=== PATIENT | male | born 1985 | race Caucasian/White ===

== ENCOUNTER 2017-03-25 09:23 | Emergency (ER) | payer MEDICAID ==
[~2017-03-25] VITALS: Ht 172.7 cm; Wt 60.0 kg
[~2017-03-25 09:23] MED LIST: LEVE250 PO; LEVE500 PO
[2017-03-25 09:26] VITALS: BP 129/88; PULSE 77; RESP 16; TEMP 98.1; O2SAT 100
[2017-03-25] MEDS ORDERED: LEVE250 PO (09:36)
--- NOTE | 2017-03-25 09:54 | PD ---
HPI Chief Complaint: Injury Time Seen by Provider: 09:53 Travel History International Travel<30 days: No Contact w/Intl Traveler<30days: No Traveled to known affect area: No History of Present Illness HPI 32 YO M presents to the ED for evaluation of 3 day history LEFT shoulder pain. Patient can identify no acute injury but states "I think I slept wrong on it." States that the pain radiates down the arm to the elbow. He also endorses inability to raise the arm to shoulder height. Denies numbness, tingling, weakness of the extremity. Endorses previous injury to the shoulder in childhood. No treatment attempted at home. PFSH Past Medical History Bipolar Disorder: Yes Anxiety: Yes Depression: Yes Seizures: Yes Tetanus Vaccination: < 5 Years Influenza Vaccination: No Past Surgical History Surgical History: No Previous Surgery Social History Alcohol Use: No Tobacco Use: Yes (1 ppd) Substance Use: Yes (Marijuana) Allergies-Medications (Allergen,Severity, Reaction): Coded Allergies: No Known Allergies (Unverified , 03/25/17) Reported Meds & Prescriptions Reported Meds & Active Scripts Active Ibuprofen 800 Mg Tab 800 Mg PO Q8H Reported Keppra (Levetiracetam) 250 Mg Tab 250 Mg PO BID Review of Systems Except as stated in HPI: all other systems reviewed are Neg Physical Exam Narrative GENERAL: Well-nourished, well-developed thin, anxious white male in no acute distress. SKIN: Focused skin assessment warm/dry. HEAD: Normocephalic. EYES: No scleral icterus. No injection or drainage. NECK: Supple, trachea midline. No JVD or lymphadenopathy. CARDIOVASCULAR: Regular rate and rhythm without murmurs, gallops, or rubs. RESPIRATORY: Breath sounds equal bilaterally. No accessory muscle use. GASTROINTESTINAL: Abdomen soft, non-tender, nondistended. MUSCULOSKELETAL: No cyanosis, or edema. FOCUSED LEFT UPPER EXTREMITY EXAM: 2+ radial pulse. Strong clerical order filler strength. Tender to palpation of the acromioclavicular joint. Passive abduction of the shoulder elicits pain and piloerection. External rotation elicits pain and piloerection. Drop test positive. Neurovascularly intact. BACK: Nontender without obvious deformity. No CVA tenderness. Data Data Last Documented VS Vital Signs Date Time Temp Pulse Resp B/P Pulse Ox O2 Delivery O2 Flow Rate FiO2 03/25/17 09:36 Room Air 03/25/17 09:26 98.1 77 16 129/88 100 Orders Shoulder, Complete (>2vws) (03/25/17 09:51) Ice/Cold Pack (03/25/17 09:51) Ketorolac Inj (Toradol Inj) (03/25/17 10:00) Acetamin-Hydrocod 325-5 Mg ([place] 5-325 (03/25/17 10:00) MDM Medical Decision Making Medical Screen Exam Complete: Yes Emergency Medical Condition: Yes Differential Diagnosis Contusion versus osteoarthritis versus fracture versus rotator cuff tendinitis versus rotator cuff tear versus other Narrative Course 32 YO M presents to the ED for evaluation of 3 day history LEFT shoulder pain. Patient can identify no acute injury but states "I think I slept wrong on it." States that the pain radiates down the arm to the elbow. He also endorses inability to raise the arm to shoulder height. Denies numbness, tingling, weakness of the extremity. Endorses previous injury to the shoulder in childhood. Vitals reviewed. Physical exam reveals an anxious white male in no acute distress. There is tenderness to palpation of the acromioclavicular joint and passive abduction and external rotation elicits pain in piloerection. Drop test is positive. Patient was administered IM Toradol, by mouth Lortab and ice pack. X-rays reveal chronic changes suspicious of rotator cuff tendinitis. I discussed the results of the x-ray with the patient. I stressed the importance of moving the shoulder through normal range of motion as tolerated. He was prescribed a short course of anti-inflammatories and instructed to follow-up with ortho pedis. He indicated understanding of these instructions and is agreeable to the care plan. He is stable and discharged home. Diagnosis Primary Impression: Tendinitis of left rotator cuff Referrals: Orthopedist Patient Instructions: General Instructions, Rotator Cuff Tendinitis (ED) Additional Instructions: Rest, hydrate. Return to normal, gentle activity as tolerated. Move the shoulder through normal range of motion as tolerated. Take anti-inflammatories 3 times a day as prescribed. Warm compresses applied to the area may also help to reduce her pain. Follow-up with orthopedist. Return to the ED for any urgent or emergent medical condition. Med/Other Pt SpecificInfo: Prescription(s) given Scripts Ibuprofen 800 Mg Qsu548 Mg PO Q8H #21 TAB Ref 0 Prov:Hernán Sen MD 03/25/17 Disposition: 01 DISCHARGE HOME Condition: Stable Nicolle Moreno Mar 25, 2017 09:54
[2017-03-25] MEDS ORDERED: ACETAMINOPHEN/HYDROcodone 325 MG/5 MG TAB PO ONE (10:00)
[2017-03-25] MEDS ORDERED: KETOROLAC TROMETHAMINE 60 MG/2 ML (IM) VIAL IM ONE (10:00)
--- NOTE | 2017-03-25 10:28 | RADRPT ---
EXAM DATE/TIME: 03/25/2017 10:12 [facility] COMPARISON: No previous studies available for comparison. INDICATIONS : Awoke with severe pain in left shoulder 3 days ago, unable to move arm, unable to abduct or raise arm , denies injury or trauma MEDICAL HISTORY : left shoulder broken at age 14 SURGICAL HISTORY : None. ENCOUNTER: Initial ACUITY: 3 days PAIN SCORE: 10/10 LOCATION: Left shoulder FINDINGS: No definite fractures, or dislocations are identified. No definite lytic or sclerotic lesion is seen . There are calcifications involving the rotator cuff on the left side probably due to chronic tendin itis and there are additional calcifications involving the left shoulder above the humeral head could potentially be in the cartilage itself possibly due to old trauma. Acute fracture is not seen. CONCLUSION: Chronic changes and no evidence for acute fracture. Socorro Jesus MD on March 25, 2017 at 10:25 Board Certified Radiologist. This report was verified electronically.
[2017-03-25] MEDS ORDERED: IBUP800T23 PO (10:43)
== END 2017-03-25 11:01 | disposition home or self-care (01) ==
LOC: NEPK 09:23
DX: M75.102 Unspecified rotator cuff tear or rupture of left shoulder, not specified as traumatic (principal); M79.602 Pain in left arm; F17.200 Nicotine dependence, unspecified, uncomplicated; Z86.59 Personal history of other mental and behavioral disorders; Z86.69 Personal history of other diseases of the nervous system and sense organs
CPT/HCPCS: 73030; 96372; 99284; J1885

== ENCOUNTER 2017-07-20 12:19 | Emergency (ER) | payer MEDICAID ==
[~2017-07-20] VITALS: Ht 177.8 cm; Wt 65.0 kg
[~2017-07-20 12:19] MED LIST changes: +IBUP1TAB7 PO; -LEVE500 PO
[2017-07-20 12:25] VITALS: BP 117/81; PULSE 81; RESP 16; TEMP 97.7; O2SAT 99
[2017-07-20] MEDS ORDERED: SODIUM CHLOR 0.9% 1000 ML INJ 1,000 ML IV ONE (13:00)
[2017-07-20] MEDS ORDERED: SODIUM CHLORIDE 0.9% FLUSH 10 ML FLUSH IVF PRN (13:00)
[2017-07-20] MEDS ORDERED: ONDANSETRON HCL 4 MG/2 ML VIAL IV PUSH ONE (13:00)
[2017-07-20 13:25] LABS: AUTOMATED NEUTROPHIL # 4.8 TH/MM3 (1.8-7.7); BASOPHIL % 0.5 % (0.0-2.0); EOSINOPHIL # 0.2 TH/MM3 (0-0.4); EOSINOPHIL % 3.3 % (0.0-4.0); HEMATOCRIT 48.1 % (39.0-51.0); HEMO FLAGS DIFF FINAL; LYMPH % 18.6 % (9.0-44.0); LYMPHOCYTE # 1.4 TH/MM3 (1.0-4.8); MEAN CELL VOLUME 98.1 FL (80.0-100.0); MEAN CORPUSCULAR HGB CONC 34.6 % (32.0-36.0); MONO % 11.2 % (0.0-8.0); NEUT % 66.4 % (16.0-70.0); PLATELET COUNT 141 TH/MM3 (150-450); RED BLOOD COUNT 4.91 MIL/MM3 (4.50-5.90); RED CELL DISTRIBUTION WIDTH 11.8 % (11.6-17.2); WHITE BLOOD COUNT 7.3 TH/MM3 (4.0-11.0)
[2017-07-20 13:39] LABS: ANION GAP 7 MEQ/L (5-15); AST (GOT) 39 U/L (15-37); BICARBONATE 24.4 MEQ/L (21.0-32.0); BLOOD UREA NITROGEN 7 MG/DL (7-18); CHLORIDE 105 MEQ/L (98-107); GLOMERULAR FILTRATION RATE 97 ML/MIN (>89); POTASSIUM 3.8 MEQ/L (3.5-5.1); SODIUM (NA) 136 MEQ/L (136-145)
--- NOTE | 2017-07-20 13:39 | PD ---
HPI Chief Complaint: Cold / Flu Symptoms Time Seen by Provider: 13:02 Travel History International Travel<30 days: No Contact w/Intl Traveler<30days: No Traveled to known affect area: No History of Present Illness HPI Patient is a 32-year-old male who presents to emergency room with multiple complaints. Patient reports that since yesterday, he has had a runny nose, reports postnasal drip, reports that when he coughs, he is coughing up thick yellow mucus. Patient reports that he is also been feeling nauseous, reports that he has had an episode of nausea, vomiting and diarrhea yesterday. Patient reports no abdominal pain, reports that he just feels dizzy this time. Reports no fever or chills, reports that he thinks he just has a URI or the flu. Denies being around sick contacts, denies any recent travels or trips. Patient with no other complaints at this time. PFSH Past Medical History Bipolar Disorder: Yes Anxiety: Yes Depression: Yes Seizures: Yes Influenza Vaccination: No Past Surgical History Surgical History: No Previous Surgery Social History Alcohol Use: No Tobacco Use: No Substance Use: Yes (Marijuana) Allergies-Medications (Allergen,Severity, Reaction): Coded Allergies: No Known Allergies (Unverified , 03/25/17) Reported Meds & Prescriptions Reported Meds & Active Scripts Active Ibuprofen 800 Mg Tab 800 Mg PO Q8H Reported Keppra (Levetiracetam) 250 Mg Tab 250 Mg PO BID Review of Systems General / Constitutional: No: Fever, Chills Eyes: No: Visual changes HENT: Positive: Lightheadedness, No: Headaches, Neck Stiffness, Neck Pain Cardiovascular: No: Chest Pain or Discomfort Respiratory: Positive: Cough, No: Shortness of Breath Gastrointestinal: Positive: Nausea, Vomiting, Diarrhea, No: Abdominal Pain Genitourinary: No: Dysuria Musculoskeletal: No: Pain Skin: No Rash Neurologic: Positive: Dizziness, No: Weakness, Headache Psychiatric: No: Depression Endocrine: No: Polydipsia Hematologic/Lymphatic: No: Easy Bruising Physical Exam Narrative GENERAL: Mild distress SKIN: Focused skin assessment warm/dry. HEAD: Atraumatic. Normocephalic. EYES: Pupils equal and round. No scleral icterus. No injection or drainage. ENT: No nasal bleeding or discharge. Mucous membranes pink and moist. NECK: Trachea midline. No JVD. Patient with no nuchal rigidity, negative Kernig 's and Babinski sign CARDIOVASCULAR: Regular rate and rhythm. No murmur appreciated. RESPIRATORY: No accessory muscle use. Clear to auscultation. Breath sounds equal bilaterally. GASTROINTESTINAL: Abdomen soft, non-tender, nondistended. Hepatic and splenic margins not palpable. MUSCULOSKELETAL: No obvious deformities. No clubbing. No cyanosis. No edema. NEUROLOGICAL: Awake and alert. No obvious cranial nerve deficits. Motor grossly within normal limits. Normal speech. PSYCHIATRIC: Appropriate mood and affect; insight and judgment normal. Data Data Last Documented VS Vital Signs Date Time Temp Pulse Resp B/P (MAP) Pulse Ox O2 Delivery O2 Flow Rate FiO2 07/20/17 12:48 25 97 Room Air 07/20/17 12:25 97.7 81 117/81 (93) Orders Orders Complete Blood Count With Diff (07/20/17 12:49) Comprehensive Metabolic Panel (07/20/17 12:49) Group A Rapid Strep Screen (07/20/17 12:49) Influenzae A/B Antigen (07/20/17 12:49) Chest, Pa & Lat (07/20/17 12:49) Iv Access Insert/Monitor (07/20/17 12:49) Sodium Chloride 0.9% Flush (Ns Flush) (07/20/17 13:00) Ondansetron Inj (Zofran Inj) (07/20/17 13:00) Sodium Chlor 0.9% 1000 Ml Inj (Ns 1000 M (07/20/17 13:00) Strep Culture (Group A) (07/20/17 13:10) Labs Laboratory Tests Test 07/20/17 13:10 White Blood Count 7.3 TH/MM3 Red Blood Count 4.91 MIL/MM3 Hemoglobin 16.7 GM/DL Hematocrit 48.1 % Mean Corpuscular Volume 98.1 FL Mean Corpuscular Hemoglobin 34.0 PG Mean Corpuscular Hemoglobin Concent 34.6 % Red Cell Distribution Width 11.8 % Platelet Count 141 TH/MM3 Mean Platelet Volume 8.4 FL Neutrophils (%) (Auto) 66.4 % Lymphocytes (%) (Auto) 18.6 % Monocytes (%) (Auto) 11.2 % Eosinophils (%) (Auto) 3.3 % Basophils (%) (Auto) 0.5 % Neutrophils # (Auto) 4.8 TH/MM3 Lymphocytes # (Auto) 1.4 TH/MM3 Monocytes # (Auto) 0.8 TH/MM3 Eosinophils # (Auto) 0.2 TH/MM3 Basophils # (Auto) 0.0 TH/MM3 CBC Comment DIFF FINAL Differential Comment Blood Urea Nitrogen 7 MG/DL Creatinine 0.91 MG/DL Random Glucose 107 MG/DL Total Protein 7.3 GM/DL Albumin 4.0 GM/DL Calcium Level 9.0 MG/DL Alkaline Phosphatase 72 U/L Aspartate Amino Transf (AST/SGOT) 39 U/L Alanine Aminotransferase (ALT/SGPT) 94 U/L Total Bilirubin 0.7 MG/DL Sodium Level 136 MEQ/L Potassium Level 3.8 MEQ/L Chloride Level 105 MEQ/L Carbon Dioxide Level 24.4 MEQ/L Anion Gap 7 MEQ/L Estimat Glomerular Filtration Rate 97 ML/MIN MDM Medical Decision Making Medical Screen Exam Complete: Yes Emergency Medical Condition: Yes Medical Record Reviewed: Yes Interpretation(s) Vital Signs Date Time Temp Pulse Resp B/P (MAP) Pulse Ox O2 Delivery O2 Flow Rate FiO2 07/20/17 12:48 25 97 Room Air 07/20/17 12:25 97.7 81 16 117/81 (53) 99 Differential Diagnosis Influenza, pneumonia, viral syndrome, gastroenteritis, gastritis Narrative Course 32-year-old male presents to emergency room with complaints of URI with cough, congestion, nausea and vomiting and diarrhea since yesterday. Patient overall nontoxic in the emergency room, patient with no abdominal pain, no Kernig sign or Brudzinski's. Labs as well as influenza screen ordered and xray of chest. During the course of the patients emergency department visit, the patients history, examination, and differential diagnosis were reviewed with the patient. The patient was placed on a monitoring specialist with oximetry and frequent blood pressure monitoring. The patient had a 20-gauge IV access obtained and blood work sent for analysis. The patient was initially provided IV fluids as well as IV Zofran. The patients laboratory studies were reviewed and remarkable for: CBC & BMP Diagram 07/20/17 13:10 Total Protein 7.3, Albumin 4.0, Calcium Level 9.0, Alkaline Phosphatase 72, Aspartate Amino Transf (AST/SGOT) 39 H, Alanine Aminotransferase (ALT/SGPT) 94 H , Total Bilirubin 0.7 Last Impressions Chest X-Ray 07/20/17 1249 Signed Impressions: Service Date/Time: Thursday, July 20, 2017 13:18 - CONCLUSION: No acute disease. Miguel Marcial MD Microbiology Date/Time Source Procedure Growth Status 07/20/17 13:10 Throat Group A Streptococcus Screen Pending Received 07/20/17 13:10 Nasal Aspirate Influenza Types A,B Antigen ([facility]) - Final NEGATIVE FOR FLU A AND B ANTIGEN.... Complete 07/20/17 13:10 Throat Group A Streptococcus Screen ([facility]) - Final Complete Patient re-evaluated, patient feeling much better after ivf as well as zofran was administered.. I reviewed all labs and studies as well as all incidental findings with patient in detail. Patient does have mildly elevated LFTs, patient reports that he has "liver problems" at baseline. Abdomen is soft, nontender, nondistended, no peritoneal signs or discharge. Patient most likely with a viral syndrome, I encouraged him to drink plenty of fluids, patient will follow up with his primary care doctor and will return to emergency room as needed. Diagnosis Primary Impression: Viral syndrome Additional Impression: Nausea vomiting and diarrhea Patient Instructions: General Instructions Additional Instructions: Please provide patient with a copy of their lab work and studies at discharge* * Please follow up with your primary care doctor in 2-3 days Return to the ER if symptoms worsen or progress Return to the ER as needed Please drink plenty of fluids Med/Other Pt SpecificInfo: Prescription(s) given Scripts Ondansetron (Zofran) 4 Mg Tab 4 MG PO Q6HR Y for NAUSEA OR VOMITING, #12 TAB 0 Refills Prov: Doreen Crow DO 07/20/17 Disposition: 01 DISCHARGE HOME Condition: Stable Doreen Crow DO Jul 20, 2017 13:39
[2017-07-20 13:40] LABS: ALT (GPT) 94 U/L (12-78)
[2017-07-20 13:42] LABS: ALKALINE PHOSPHATASE 72 U/L (45-117); TOTAL BILIRUBIN ADULT 0.7 MG/DL (0.2-1.0)
--- NOTE | 2017-07-20 13:57 | RADRPT ---
EXAM DATE/TIME: 07/20/2017 13:18 [facility] COMPARISON: No previous studies available for comparison. INDICATIONS : Cough. MEDICAL HISTORY : None. SURGICAL HISTORY : None. ENCOUNTER: Initial ACUITY: 1 day PAIN SCORE: 0/10 LOCATION: Bilateral chest FINDINGS: PA and lateral views of the chest demonstrate the lungs to be symmetrically aerated without evidence of mass, infiltrate or effusion. The cardiomediastinal contours are unremarkable. Osseous structure s are intact. CONCLUSION: No acute disease. Miguel Marcial MD on July 20, 2017 at 13:55 Board Certified Radiologist. This report was verified electronically.
[2017-07-20] MEDS ORDERED: ZOFR4TAB PO (14:37)
== END 2017-07-20 14:56 | disposition home or self-care (01) ==
LOC: NEPD 12:19
DX: B34.9 Viral infection, unspecified (principal); R11.2 Nausea with vomiting, unspecified; R19.7 Diarrhea, unspecified; F31.9 Bipolar disorder, unspecified; Z79.899 Other long term (current) drug therapy
CPT/HCPCS: 71020; 80053; 85025; 87081; 87804; 87880; 96374; 99285; J2405; J7030